=== PATIENT | female | born 2005 | race Caucasian/White ===

== ENCOUNTER → 2025-01-28 14:39 | Outpatient (REF) | payer BC, SELFPAY | LOC: WDC 14:39 | PROVIDERS: ATTENDING PHYSICIAN Obstetrics & Gynecology Gynecology | DX: N63.20 Unspecified lump in the left breast, unspecified quadrant (principal); N63.23 Unspecified lump in the left breast, lower outer quadrant | CPT/HCPCS: 76642 ==